=== PATIENT | female | born 2000 | race Caucasian/White ===

== ENCOUNTER 2019-06-19 12:54 | Emergency (ER) | payer OTHER ==
[2019-06-19 13:01] VITALS: BP 122/72
--- NOTE | 2019-06-19 13:17 | ER Document Report ---
HPI - HPI Patient complains to provider of: Right hip pain Time Seen by Provider: 06/19/19 13:07 Onset: Yesterday Onset/Duration: Gradual Quality of pain: Achy Pain Level: 4 Context: Patient presents complaining of right hip pain that started yesterday. Patient denies any specific injury. Patient does have a history of previous orthoscopic surgery in which she had a labrum repair performed last year. Patient does report increased activity at work. Patient denies any fever. Patient complains of increased pain with weightbearing Associated Symptoms: Other - Right hip pain. denies: Fever, Vomiting Exacerbated by: Standing, Walking Relieved by: Denies Similar symptoms previously: Yes Recently seen / treated by doctor: No - ROS ROS below otherwise negative: Yes Systems Reviewed and Negative: Yes All other systems reviewed and negative - CONSTITUTIONAL Constitutional: DENIES: Fever - NEURO Neurology: DENIES: Weakness - MUSCULOSKELETAL Musculoskeletal: REPORTS: Extremity pain. DENIES: Back Pain, Neck Pain - DERM Skin Color: Normal Skin Problems: None Past Medical History - General Information source: Patient - Social History Smoking Status: Never Smoker Frequency of alcohol use: None Drug Abuse: None Occupation: [employer] Lives with: Spouse/Significant other Family History: Reviewed & Not Pertinent Psychiatric Medical History: Reports: Hx Anxiety Past Surgical History: Reports: Hx Orthopedic Surgery Vertical Provider Document - CONSTITUTIONAL Agree With Documented VS: Yes Exam Limitations: No Limitations General Appearance: WD/WN, No Apparent Distress - HEENT HEENT: Atraumatic, Normocephalic - NECK Neck: Normal Inspection, Supple. negative: Lymphadenopathy-Left, Lymphadenopathy-Right - RESPIRATORY Respiratory: Breath Sounds Normal, No Respiratory Distress - CARDIOVASCULAR Cardiovascular: Regular Rate, Regular Rhythm Pulses: Normal: Posterior tibial - BACK Notes: Right SI joint tenderness, no lumbar midline tenderness - MUSCULOSKELETAL/EXTREMETIES Musculoskeletal/Extremeties: MAEW, FROM, Tender - Tenderness to anterior aspect of right hip, patient able to move throughout full range of motion without dif ficulty. Tenderness reproduced with weightbearing, No Edema - NEURO Level of Consciousness: Awake, Alert, Appropriate Motor/Sensory: No Motor Deficit - DERM Integumentary: Warm, Dry, No Rash Course - Re-evaluation Re-evalutation: 06/19/19 13:14 Patient without any traumatic injury although does report increased pain with weightbearing. Will manage symptomatically and encourage outpatient follow-up with orthopedics for further evaluation. Patient verbalized understanding is agreeable with this discharge plan of care. - Vital Signs Vital signs: Temp Pulse Resp BP Pulse Ox 98.0 F 100 18 122/72 98 06/19/19 12:59 06/19/19 12:59 06/19/19 12:59 06/19/19 12:59 06/19/19 12:59 Discharge - Discharge Clinical Impression: Right hip pain Condition: Stable Disposition: HOME, SELF-CARE Instructions: Oral Narcotic Medication ([facility]), Overuse Syndrome ([facility]) Additional Instructions: Return immediately for any new or worsening symptoms Followup with your primary care provider, call tomorrow to make a followup appointment Weightbearing as tolerated Follow-up with orthopedics for any persistent pain or problems Prescriptions: Lidocaine [Lidoderm 5% (700 mg) Transdermal Patch] 1 patch TP DAILY PRN #10 adh..patch PRN Reason: Hydrocodone/Acetaminophen [[place] 5-325 mg Tablet] 1 tab PO Q6 PRN #10 tablet PRN Reason: Forms: Return to Work Referrals: [facility] [Provider Group] - Follow up as needed
== END 2019-06-19 13:45 | disposition home or self-care (01) ==
LOC: ER 12:54
DX: M25.551 Pain in right hip (principal); Z98.890 Other specified postprocedural states
CPT/HCPCS: 99283

== ENCOUNTER 2019-08-13 19:55 | Emergency (ER) | payer OTHER ==
[2019-08-13] MEDS ORDERED: HYDROCODONE/ACETAMINOPHEN 5-325 MG TABLET PO ONE (20:57)
--- NOTE | 2019-08-13 20:59 | ER Document Report ---
HPI - HPI Patient complains to provider of: Right hip pain Time Seen by Provider: 08/13/19 20:57 Onset: This afternoon Onset/Duration: Persistent Quality of pain: Achy Pain Level: 3 Context: Patient presents complaining of right hip pain. Patient states she has a history of previous torn labrum. Patient states it give out on her today and she has been unable to bear weight. Patient denies any traumatic injury today. Patient denies any fall. Associated Symptoms: Other - Right hip pain Exacerbated by: Standing, Movement, Walking Relieved by: Denies Similar symptoms previously: Yes Recently seen / treated by doctor: No - ROS ROS below otherwise negative: Yes Systems Reviewed and Negative: Yes All other systems reviewed and negative - NEURO Neurology: REPORTS: Weakness - GASTROINTESTINAL Gastrointestinal: DENIES: Nausea - MUSCULOSKELETAL Musculoskeletal: REPORTS: Extremity pain - DERM Skin Color: Normal Skin Problems: None Past Medical History - General Information source: Patient - Social History Smoking Status: Never Smoker Frequency of alcohol use: None Drug Abuse: None Occupation: [employer] Lives with: Family Family History: Reviewed & Not Pertinent Patient has homicidal ideation: No Psychiatric Medical History: Reports: Hx Anxiety Past Surgical History: Reports: Hx Orthopedic Surgery Vertical Provider Document - CONSTITUTIONAL Agree With Documented VS: Yes Exam Limitations: No Limitations General Appearance: WD/WN, No Apparent Distress Notes: PHYSICAL EXAMINATION: GENERAL: Well-appearing and in no acute distress. HEAD: Atraumatic, normocephalic. EYES: sclera anicteric, conjunctiva are normal. ENT: nares patent. Moist mucous membranes. NECK: Normal range of motion, supple without lymphadenopathy LUNGS: CTAB and equal. No wheezes rales or rhonchi. HEART: Regular rate and rhythm without murmurs EXTREMITIES: Right hip joint tenderness over anterior lateral aspect, patient with decreased flexion and abduction, no deformity, no dislocation tenderness increases with weightbearing, no pitting edema. No cyanosis. BACK: No midline tenderness, no step-off or deformity. No CVA tenderness NEUROLOGICAL: Cranial nerves grossly intact. Normal speech. PSYCH: Normal mood, normal affect. SKIN: Warm, Dry, normal turgor, no rashes or lesions noted Course - Re-evaluation Re-evalutation: 08/13/19 21:00 We will give short course of pain medication at this time, patient encouraged to follow-up with orthopedics for further management, patient does have crutches. No concern for fracture or dislocation. Patient has known history of labral tear. - Vital Signs Vital signs: Temp Pulse Resp BP Pulse Ox 98.3 F 76 18 122/74 100 08/13/19 20:47 08/13/19 20:31 08/13/19 20:31 08/13/19 20:31 08/13/19 20:31 Discharge - Discharge Clinical Impression: Hip sprain Qualifiers: Encounter type: initial encounter Laterality: right Qualified Code(s): S73.101A - Unspecified sprain of right hip, initial encounter Condition: Stable Disposition: HOME, SELF-CARE Instructions: Sprain ([facility]) Additional Instructions: Return immediately for any new or worsening symptoms Followup with your primary care provider, call tomorrow to make a followup appointment Follow-up with orthopedics, call tomorrow for an appointment Prescriptions: Hydrocodone/Acetaminophen [[place] 5-325 mg Tablet] 1 tab PO Q6 PRN #6 tablet PRN Reason: Forms: Return to Work Referrals: [facility] [Provider Group] - Follow up tomorrow
[2019-08-14 01:40] VITALS: BP 120/70
== END 2019-08-13 21:07 | disposition home or self-care (01) ==
LOC: ER 19:55
DX: S73.101A Unspecified sprain of right hip, initial encounter (principal); M25.551 Pain in right hip; R53.1 Weakness; X58.XXXA Exposure to other specified factors, initial encounter
CPT/HCPCS: 99283

== ENCOUNTER 2019-10-03 11:32 | Emergency (ER) | payer OTHER ==
--- NOTE | 2019-10-03 14:29 | ER Document Report ---
ED General - General Chief Complaint: Abdominal Pain Stated Complaint: ABDOMINAL PAIN/CHILLS/VOMITING Primary Care Provider: KATY ROMAN PA-C [Primary Care Provider] - Follow up as needed Notes: 18-year-old female with past medical history of bilateral labral tears presenting today with left lower quadrant pain starting this morning. Patient states that the pain is a crampy pain that is intermittently sharp. Laying on the left side worsens the pain. She is more comfortable lying flat. [place] some chills this morning. She is afebrile in the emergency department. Not taking any pain medication. States she has had 2 episodes of vomiting this morning. Is nauseated when she stands up and moves around. She is 11 days late for her menstrual period. Feels like she had chills at home. Has not taken any medication for her symptoms. - Related Data Allergies/Adverse Reactions: ibuprofen Adverse Reaction (Verified 08/13/19 20:47) rash Past Medical History - Social History Smoking Status: Never Smoker Frequency of alcohol use: None Drug Abuse: None Family History: Reviewed & Not Pertinent Psychiatric Medical History: Reports: Hx Anxiety Past Surgical History: Reports: Hx Orthopedic Surgery Review of Systems - Review of Systems Constitutional: See HPI EENT: No symptoms reported Cardiovascular: No symptoms reported Respiratory: No symptoms reported Gastrointestinal: See HPI Genitourinary: No symptoms reported Female Genitourinary: No symptoms reported Musculoskeletal: No symptoms reported Skin: No symptoms reported Hematologic/Lymphatic: No symptoms reported Neurological/Psychological: No symptoms reported Physical Exam - Vital signs Vitals: Temp Pulse Resp BP Pulse Ox 97.9 F 122 H 16 105/76 100 10/03/19 12:10 10/03/19 12:10 10/03/19 12:10 10/03/19 12:10 10/03/19 12:10 Interpretation: Tachycardic - Notes Notes: Adult General: GENERAL: Alert, interacts well. No acute distress HEAD: Normocephalic, atraumatic EYES: Pupils equal, round and reactive to light. Extraocular movements intact. ENT: Airway patent. Nares patent. NECK: Full range of motion. Supple. Trachea midline. No lymphadenopathy. LUNGS: Clear to auscultation bilaterally, no wheezes, rales, or rhonchi. No respiratory distress. Nontender chest wall. HEART: Regular rate and rhythm. No murmurs, rubs or gallops. ABDOMEN: Soft, tender to palpation on left lower quadrant. Nondistended. (-) [place] sign. Bowel sounds present in all 4 quadrants. No rebound, guarding or masses. GENITOURINARY: Deferred EXTREMITIES: Moves all 4 extremities spontaneously. BACK: No cervical, thoracic, lumbar midline tenderness. Moves all extremities with full range of motion. NEUROLOGICAL: Alert and oriented x3. Normal speech. Strength 5/ 5 in all extremities. PSYCH: Normal affect, normal mood. SKIN: Warm, dry, normal turgor. No rashes or lesions noted. Course - Re-evaluation Re-evalutation: 10/03/19 22:16 Patients ultrasound shows no acute findings. No ovarian torsion, no cysts. Her urine is negative. Patient was provided tylenol and fluids which helped alleviate her symptoms. I discussed with patient these findings. She remains afebrile in the ER. Her repeat vitals show that she no longer is tachycardic. Has an appetite now. Urinalysis shows no UTI As patients work up and physical exam are reassuring I will discharge patient. Symptoms can be due to a viral etiology. Return precautions discussed with a patient to include worsening symptoms or the development of new symptoms. Recommend follow up with primary care. Patient acknowledges and verbalizes understanding of instructions and plan. All questions answered. - Vital Signs Vital signs: Temp Pulse Resp BP Pulse Ox 97.9 F 79 16 123/67 100 10/03/19 12:10 10/03/19 17:40 10/03/19 17:40 10/03/19 17:40 10/03/19 17:40 - Laboratory Laboratory results interpreted by me: 10/03/19 17:30 Urine Protein 30 H Discharge - Discharge Clinical Impression: Lower abdominal pain, unspecified Condition: Stable Disposition: HOME, SELF-CARE Instructions: Abdominal Pain ([facility]) Additional Instructions: The cause of your left lower quadrant pain could be due to a viral infection. Urine is negative. Your ultrasound shows no acute pathologies. I have prescribed a medication to treat your nausea. Please follow-up with your primary care provider as soon as possible. Please return the emergency depart ment if you have worsening symptoms or development of new symptoms. Referrals: KATY ROMAN PA-C [Primary Care Provider] - Follow up as needed
[2019-10-03] MEDS ORDERED: ONDANSETRON HCL INJ/PF 4 MG/2 ML SDV IV ONE (14:30)
[2019-10-03] MEDS ORDERED: ACETAMINOPHEN 325 MG TABLET PO ONE (14:31)
[2019-10-03] MEDS ORDERED: NORMAL SALINE 1000 ML 1,000 ML IV ONE ×2 (14:42→17:08)
--- NOTE | 2019-10-03 15:45 | RADIOLOGY REPORT (SQ) ---
EXAM DESCRIPTION: U/S NON OB PEL TV W/DOPPLER IMAGES COMPLETED DATE/TIME: 10/03/2019 3:37 pm REASON FOR STUDY: left lower quadrant pain COMPARISON: None. TECHNIQUE: Dynamic and static grayscale images acquired of the pelvis via transabdominal approach an d recorded on PACS. Additional selected color Doppler and spectral images recorded. LIMITATIONS: None. FINDINGS: UTERUS: Contour normal. No mass. ENDOMETRIAL STRIPE: No focal or generalized thickening. No masses. CERVIX: No nabothian cysts. RIGHT OVARY AND DOPPLER: Normal size. No worrisome masses. Normal arterial vascular flow without evid ence for torsion. LEFT OVARY AND DOPPLER: Normal size. No worrisome masses. Normal arterial vascular flow without evide nce for torsion. FREE FLUID: None noted. OTHER: No other significant finding. MEASUREMENTS: UTERUS: 6.1 x 3.6 x 2.8 cm ENDOMETRIAL STRIPE: 0.7 cm RIGHT OVARY: 2.2 x 1.1 x 1.2 cm LEFT OVARY: 2.0 x 1.3 x 1.2 cm IMPRESSION: NORMAL PELVIC ULTRASOUND BY TRANSABDOMINAL TECHNIQUE. TECHNICAL DOCUMENTATION: JOB ID: [id number] [employer]- All Rights Reserved Rev Reading location - IP/workstation name: [email or web address]
[2019-10-03 17:41] VITALS: BP 123/67
[2019-10-03 17:51] LABS: AMORPHOUS SEDIMENT,URINE 1+ /HPF; APPEARANCE,URINE TURBID; BILIRUBIN,URINE NEGATIVE (NEGATIVE); CALCIUM OXALATE CRYSTALS,URINE MODERATE /HPF; COLOR,URINE YELLOW; GLUCOSE, URINE NEGATIVE (NEGATIVE); KETONES,URINE NEGATIVE (NEGATIVE); LEUKOCYTE ESTERASE,URINE NEGATIVE (NEGATIVE); NITRITE,URINE NEGATIVE (NEGATIVE); PROTEIN,URINE 30 mg/dL (NEGATIVE); URINE SPECIFIC GRAVITY 1.029; UROBILINOGEN,URINE NEGATIVE mg/dL (<2.0)
[2019-10-03] MEDS ORDERED: ONDANSETRON ODT 4 MG TAB (6 TAB/ER DISP) PO PRN (18:14)
== END 2019-10-03 18:44 | disposition home or self-care (01) ==
LOC: ER 11:32
DX: R10.32 Left lower quadrant pain (principal); R10.9 Unspecified abdominal pain; R11.0 Nausea; F41.9 Anxiety disorder, unspecified
CPT/HCPCS: 99285; 96361; 96374; 81025; 81001; 76830; 93976; J2405; J7030